=== PATIENT | female | born 1960 | race Caucasian/White ===

== ENCOUNTER 2024-07-01 09:50 | Oncology outpatient (recurring) (ONCR) | payer OTHER, SELFPAY ==
[2024-07-01 11:11] LABS: Basophils # 0.1 10^3/uL (0.0-0.1); Basophils % 0.9 %; Eosinophils # 0.3 10^3/uL (0.0-0.8); Eosinophils % 5.8 %; Hematocrit 41.4 % (36-47); Lymphocytes # 1.6 10^3/uL (0.8-4.8); Lymphocytes % 29.5 %; Mean Corpuscular HGB Conc 33.3 g/dL (30-55); Mean Corpuscular Hemoglobin 30.8 pg (27-33); Mean Corpuscular Volume 92.4 fl (85-98); Mean Platelet Volume 11.1 fL (7.4-10.4); Monocytes # 0.4 10^3/uL (0.2-0.9); Monocytes % 6.7 %; Neutrophils # 3.07 10^3/uL (1.8-7.7); Neutrophils % 56.9 %; Nucleated Red Blood Cells % 0 %; Platelet Count 175 10^3/cmm (157-399); Red Blood Count 4.48 10^6/uL (3.85-5.65); Red Cell Distribution Width 12.1 % (12.1-15.1); White Blood Count 5.39 10^3/uL (3.29-11.43)
[2024-07-01 11:36] LABS: Carcinoembryonic Antigen 0.8 ng/mL (0.0-4.7)
[2024-07-01 11:48] LABS: Alanine Aminotransferase 23 U/L (0-33); Albumin Level 4.2 g/dL (3.5-5.2); Alkaline Phosphatase 54 U/L (35-105); Anion Gap 17.2 (5-19); Aspartate Amino Transferase 18 U/L (0-32); Blood Urea Nitrogen 20 mg/dL (8-23); Calcium 9.6 mg/dL (8.5-10.5); Carbon Dioxide 23 mmol/L (22-29); Chloride 102 mmol/L (98-107); Creatinine Clr Calc Pharmacy 83.2031; Globulin 2.4 g/dL (1.3-4.6); Glomerular Filtration Rate 63.2 mL/min (90-130); Glucose 96 mg/dL (65-115); Lactate Dehydrogenase 155 U/L (135-214); Osmolality Calculated 288 mOsm/kg (285-295); Potassium 4.2 mmol/L (3.5-5.1); Sodium 138 mmol/L (136-145); Total Bilirubin 0.3 mg/dL (0.15-1.2); Total Protein 6.6 g/dL (6.6-8.7)
== END 2024-07-16 23:59 | disposition home or self-care (01) ==
PROVIDERS: Visit Provider Internal Medicine
DX: Z53.9 Procedure and treatment not carried out, unspecified reason (principal); C18.7 Malignant neoplasm of sigmoid colon
CPT/HCPCS: 36415; 80053; 82378; 83615; 85025

== ENCOUNTER 2024-10-20 09:02 | Oncology outpatient (recurring) (ONCR) | payer OTHER, SELFPAY ==
[2024-10-20 09:57] LABS: Basophils # 0.1 10^3/uL (0.0-0.1); Basophils % 1.4 %; Eosinophils # 0.3 10^3/uL (0.0-0.8); Eosinophils % 6.1 %; Hematocrit 41.3 % (36-47); Lymphocytes # 1.5 10^3/uL (0.8-4.8); Lymphocytes % 34.9 %; Mean Corpuscular HGB Conc 33.4 g/dL (30-55); Mean Corpuscular Hemoglobin 31.2 pg (27-33); Mean Corpuscular Volume 93.2 fl (85-98); Mean Platelet Volume 12.1 fL (7.4-10.4); Monocytes # 0.3 10^3/uL (0.2-0.9); Neutrophils # 2.21 10^3/uL (1.8-7.7); Neutrophils % 50.1 %; Nucleated Red Blood Cells % 0 %; Platelet Count 176 10^3/cmm (157-399); Red Blood Count 4.43 10^6/uL (3.85-5.65); Red Cell Distribution Width 12.4 % (12.1-15.1); White Blood Count 4.41 10^3/uL (3.29-11.43)
[2024-10-20 10:27] LABS: Carcinoembryonic Antigen 0.8 ng/mL (0.0-4.7)
[2024-10-20 10:38] LABS: Alanine Aminotransferase 21 U/L (0-33); Albumin Level 4.3 g/dL (3.5-5.2); Alkaline Phosphatase 53 U/L (35-105); Anion Gap 17.1 (5-19); Aspartate Amino Transferase 18 U/L (0-32); Blood Urea Nitrogen 20 mg/dL (8-23); Calcium 9.7 mg/dL (8.5-10.5); Carbon Dioxide 25 mmol/L (22-29); Chloride 105 mmol/L (98-107); Creatinine Clr Calc Pharmacy 84.0277; Globulin 2.6 g/dL (1.3-4.6); Glomerular Filtration Rate 63.2 mL/min (90-130); Glucose 85 mg/dL (65-115); Lactate Dehydrogenase 164 U/L (135-214); Osmolality Calculated 298 mOsm/kg (285-295); Potassium 4.1 mmol/L (3.5-5.1); Sodium 143 mmol/L (136-145); Total Bilirubin 0.4 mg/dL (0.15-1.2); Total Protein 6.9 g/dL (6.6-8.7)
== END 2024-11-13 23:59 | disposition home or self-care (01) ==
PROVIDERS: Visit Provider Internal Medicine
DX: Z53.9 Procedure and treatment not carried out, unspecified reason; C18.7 Malignant neoplasm of sigmoid colon
CPT/HCPCS: 36415; 80053; 82378; 83615; 85025

== ENCOUNTER 2025-02-09 13:20 | Oncology outpatient (recurring) (ONCR) | payer OTHER, SELFPAY ==
[2025-02-09 13:57] LABS: Hematocrit 39.8 % (36-47); Hemoglobin 13.40 g/dL (11.27-16.99); Mean Corpuscular HGB Conc 33.7 g/dL (30-55); Mean Corpuscular Hemoglobin 30.3 pg (27-33); Mean Corpuscular Volume 90.0 fl (85-98); Nucleated Red Blood Cells % 0 %; Platelet Count 170 10^3/cmm (157-399); Red Blood Count 4.42 10^6/uL (3.85-5.65); White Blood Count 6.46 10^3/uL (3.29-11.43)
[2025-02-09 14:23] LABS: Carcinoembryonic Antigen 0.7 ng/mL (0.0-4.7)
[2025-02-09 14:34] LABS: Alanine Aminotransferase 17 U/L (0-33); Albumin Level 4.3 g/dL (3.5-5.2); Alkaline Phosphatase 52 U/L (35-105); Anion Gap 15.7 (5-19); Aspartate Amino Transferase 16 U/L (0-32); Blood Urea Nitrogen 24 mg/dL (8-23); Calcium 9.4 mg/dL (8.5-10.5); Carbon Dioxide 26 mmol/L (22-29); Chloride 103 mmol/L (98-107); Creatinine Clr Calc Pharmacy 75.7900; Globulin 2.7 g/dL (1.3-4.6); Glucose 115 mg/dL (65-115); Osmolality Calculated 297 mOsm/kg (285-295); Potassium 3.7 mmol/L (3.5-5.1); Sodium 141 mmol/L (136-145); Total Protein 7.0 g/dL (6.6-8.7)
[2025-02-09 17:51] LABS: Thyroid Stimulating Hormone 0.69 uIU/mL (0.27-4.20)
== END 2025-02-13 23:59 | disposition home or self-care (01) ==
PROVIDERS: Internal Medicine; Visit Provider Nurse Practitioner
DX: C18.7 Malignant neoplasm of sigmoid colon (principal); G62.89 Other specified polyneuropathies; E27.9 Disorder of adrenal gland, unspecified; G89.4 Chronic pain syndrome; R53.83 Other fatigue
CPT/HCPCS: 36415; 80053; 82378; 84443; 85025